=== PATIENT | female | born 1970 | race Caucasian/White ===

== ENCOUNTER → 2016-08-15 | Outpatient (CLI) | payer OTHER ==
--- NOTE | 2016-08-15 11:39 | DIAGNOSTIC IMAGING REPORT ---
LEFT FOREARM 2 VIEWS ROUTINE CLINICAL HISTORY: Pain status post trauma COMPARISON: None. DISCUSSION: No fractures or dislocations are visualized. There is mild spurring at the level of the coronoid processes the proximal ulna. There is calcification at the level of the medial epicondyles of distal humerus. IMPRESSION: Chronic changes at the level of the elbow. No acute fractures. Electronically signed by: Dionisio Isaac M.D. 08/15/2016 11:37 AM Dictated Date/Time: 08/15/2016 11:36 AM
== END | disposition home or self-care (01) ==
LOC: C.RAD1850 11:16
PROVIDERS: ATTEND Nurse Practitioner Adult Health
DX: M79.632 Pain in left forearm (principal); W19.XXXA Unspecified fall, initial encounter

== ENCOUNTER 2019-06-08 19:48 | Observation (INO) ==
--- NOTE | 2019-06-08 21:30 | XRay Report ---
XR chest 1V portable CLINICAL HISTORY: Chest Pain COMPARISON STUDY: No previous studies for comparison. FINDINGS: The heart is normal in size. There is no failure. There is no lobar consolidation. There is subtle right basilar interstitial thickening, nonspecific finding which could indicate a bronchitis. [No pleural effusions are visualized IMPRESSION: 1. No evidence of lobar consolidation 2. Mild right basilar interstitial thickening, a finding which could be secondary to a bronchitis Electronically signed by: Dionisio Isaac M.D. 06/08/2019 9:29 PM
[2019-06-08 21:36] LABS: Basophils # (auto) 0.01 K/uL (0-0.2); Basophils % (auto) 0.1 %; Eosinophils # (auto) 0.04 K/uL (0-0.5); Eosinophils % (auto) 0.3 %; Hematocrit (blood only) 43.8 % (37-47); Immature Granulocytes # (auto) 0.03 K/uL (0.00-0.02); Immature Granulocytes % (auto) 0.2 %; Lymphocytes % (auto) 26.8 %; Mean Corpuscular Hemoglobin 28.7 pg (25-34); Mean Corpuscular Hgb Conc 34.2 g/dL (32-36); Mean Corpuscular Volume 83.7 fL (80-100); Mean Platelet Volume 10.5 fL (7.4-10.4); Monocytes # (auto) 0.78 K/uL (0.11-0.59); Monocytes % (auto) 6.1 %; Neutrophils # (auto) 8.45 K/uL (1.4-6.5); Neutrophils % (auto) 66.5 %; Platelet Count 260 K/uL (130-400); RDW Coefficient of Variation 14.2 % (11.5-14.5); RDW Standard Deviation 43.4 fL (36.4-46.3); Red Blood Count 5.23 M/uL (4.2-5.4); White Blood Count 12.71 K/uL (4.8-10.8)
[2019-06-08 21:51] LABS: Alanine Aminotransferase 53 U/L (12-78); Albumin Level 4.1 gm/dl (3.4-5.0); Aspartate Aminotransferase 21 U/L (15-37); BUN Creatinine Ratio 23.8 (10-20); Blood Urea Nitrogen 20 mg/dl (7-18); Carbon Dioxide 24 mmol/L (21-32); Chloride 104 mmol/L (98-107); Creatinine Clr Calc Pharmacy 89.5 ml/min; Est GFR (African American) 93.3; Est GFR (Non-African American) 80.5; Glucose 213 mg/dl (70-99); Lipase 141 U/L (73-393); Potassium 3.4 mmol/L (3.5-5.1); Sodium 137 mmol/L (136-145)
[2019-06-08 21:56] LABS: Alkaline Phosphatase 103 U/L (45-117); Bilirubin,Total 0.6 mg/dl (0.2-1); Globulin 4.1 gm/dl (2.5-4.0); Total Protein 8.2 gm/dl (6.4-8.2); Troponin I < 0.015 ng/ml (0-0.045)
[2019-06-08] MEDS ORDERED: POTASSIUM CHLORIDE 10 MEQ TABCR PO STA (22:27)
[2019-06-08] MEDS ORDERED: ASPIRIN CHEW 324 MG PO STA (22:33)
[2019-06-08 23:31] LABS: Magnesium 2.2 mg/dl (1.8-2.4)
--- NOTE | 2019-06-08 23:45 | History & Physical Report ---
Date of Service June 08, 2019 Assessment & Plan (1) Chest pain: With left upper extremity radiation ? Possibly from uncontrolled HTN secondary to recent steroid Rx for bronchitis symptoms Rule out musculoskeletal pathology for left upper extremity pain DM2, on oral meds BSG elevated likely secondary to recent steroid course Well-controlled as of recent outpatient hemoglobin A1c of 6.12 May 2018 Hypokalemia secondary to home diuretic Rx OBS PCU Facilitate home BP meds, may need dose titration Trend troponin, TTE RE chest pain Left shoulder x-ray Re: Pain Basal insulin, ISS BG goal [id number], update hemoglobin A1c Replace potassium, hold home diuretic for now DVT Prophylaxis. Lovenox subcu Full code History of Present Illness Chief Complaint: Chest pain, left arm pain Primary Care Provider: Ana Rosa Berg DO History obtained from patient and records. Medical history significant for hypertension, DM 2 on oral meds. Last week, patient seen at PCP's office with bronchitis symptoms. Improved on doxycycline, albuterol inhaler; on last few days of prednisone course. Patient was at work today when she felt fuzzy, transient headache symptoms. Transient left-sided squeezing chest pain with radiation to the left arm. Left upper arm pain slightly worsened by motion. No shortness of breath. Patient directed by PCP to the ER. Medical History as above Surgical History : Cystoscopy, bladder defect repair, gynecologic procedures, ex lap Family History : Unknown as patient was adopted Personal/Social history : Non-smoker, occasional EtOH intake, [employer] Allergies Allergy/AdvReac Type Severity Reaction Status Date / Time Penicillins Allergy Intermediate Hives Verified 06/08/19 22:57 Sulfa (Sulfonamide Allergy Intermediate Hives Verified 06/08/19 22:57 Antibiotics) Home Medications Home Medications Medication Instructions Recorded Confirmed Type albuterol sulfate [ProAir HFA] 2 puff INHALATION Q4H PRN 06/08/19 06/08/19 History atorvastatin 10 mg PO HS 06/08/19 06/08/19 History carvedilol 25 mg PO BID 06/08/19 06/08/19 History cyanocobalamin (vitamin B-12) 1,000 mcg PO DAILY 06/08/19 06/08/19 History [Vitamin B-12] empagliflozin [Jardiance] 25 mg PO QAM 06/08/19 06/08/19 History losartan-hydrochlorothiazide 1 tab PO BID 06/08/19 06/08/19 History metformin 500 mg PO BID 06/08/19 06/08/19 History prednisone 10 mg PO DAILY 06/08/19 06/08/19 History Past Med/Surg History Medical History (Updated 06/09/19 @ 04:21 by Sea Beckham MD) Left ventricular cardiac abnormality Social History Preferred Language: Portuguese Communication Ability: Effective Beliefs That Will Affect Care: None Current Living Situation: Spouse Other Information That Helps Us Care for You: No Feels Safe at Home: Yes Smoking Status: Never smoker Do You Dip or Chew Tobacco: No ; Hx Alcohol Use: No Hx Substance Use: No Review of Systems Review of Systems: As per HPI, all 10 systems reviewed, all other ROS negative Physical Exam Physical Exam: GENERAL: Comfortable, obese, pleasant, no respiratory distress SKIN: Normal color, warm HEENT: [place] palpebral conjunctivae, no ptosis, dry buccal mucosa NECK : Supple, short neck, no tenderness CHEST : CTA, no tenderness HEART : RRR, no obvious murmurs ABDOMEN: Some distention, nontender EXTREMITIES : No LE swelling/tenderness, no other conspicuous deformities noted NEUROLOGIC : Coherent, no facial asymmetry, no other gross focality Results & Data Vital Signs (Past 12 Hours) Vital Signs Temp Pulse Pulse Resp BP BP Pulse Ox 06/08/19 23:00 69 20 164/116 H 95 06/08/19 22:39 73 16 157/93 H 96 06/08/19 21:18 68 18 145/89 H 95 06/08/19 21:14 76 94 06/08/19 19:50 36.4 C L 72 18 160/94 H 94 Laboratory Results Laboratory Results WBC 12.71 K/uL (4.8-10.8) H 06/08/19 21:20 RBC 5.23 M/uL (4.2-5.4) 06/08/19 21:20 Hgb 15.0 g/dL (12.0-16.0) 06/08/19 21:20 Hct 43.8 % (37-47) 06/08/19 21:20 MCV 83.7 fL (80-100) 06/08/19 21:20 MCH 28.7 pg (25-34) 06/08/19 21:20 MCHC 34.2 g/dL (32-36) 06/08/19 21:20 RDW Std Deviation 43.4 fL (36.4-46.3) 06/08/19 21:20 RDW Coeff of Kathrine 14.2 % (11.5-14.5) 06/08/19 21:20 Plt Count 260 K/uL (130-400) 06/08/19 21:20 MPV 10.5 fL (7.4-10.4) H 06/08/19 21:20 Immature Gran % (Auto) 0.2 % 06/08/19 21:20 Neut % (Auto) 66.5 % 06/08/19 21:20 Lymph % (Auto) 26.8 % 06/08/19 21:20 Wells % (Auto) 6.1 % 06/08/19 21:20 Eos % (Auto) 0.3 % 06/08/19 21:20 Baso % (Auto) 0.1 % 06/08/19 21:20 Immature Gran # (Auto) 0.03 K/uL (0.00-0.02) H 06/08/19 21:20 Neut # (Auto) 8.45 K/uL (1.4-6.5) H 06/08/19 21:20 Lymph # (Auto) 3.40 K/uL (1.2-3.4) 06/08/19 21:20 Wells # (Auto) 0.78 K/uL (0.11-0.59) H 06/08/19 21:20 Eos # (Auto) 0.04 K/uL (0-0.5) 06/08/19 21:20 Baso # (Auto) 0.01 K/uL (0-0.2) 06/08/19 21:20 Sodium 137 mmol/L (136-145) 06/08/19 21:20 Potassium 3.4 mmol/L (3.5-5.1) L 06/08/19 21:20 Chloride 104 mmol/L (98-107) 06/08/19 21:20 Carbon Dioxide 24 mmol/L (21-32) 06/08/19 21:20 Anion Gap 8.0 (3-11) 06/08/19 21:20 BUN 20 mg/dl (7-18) H 06/08/19 21:20 Creatinine 0.84 mg/dl (0.6-1.2) 06/08/19 21:20 Est Cr Clr Drug Dosing 89.5 ml/min 06/08/19 21:20 Est GFR ( Amer) 93.3 06/08/19 21:20 Est GFR (Non-Af Amer) 80.5 06/08/19 21:20 BUN/Creatinine Ratio 23.8 (10-20) H 06/08/19 21:20 Glucose 213 mg/dl (70-99) H 06/08/19 21:20 Calcium 10.0 mg/dl (8.5-10.1) 06/08/19 21:20 Magnesium 2.2 mg/dl (1.8-2.4) 06/08/19 21:20 Total Bilirubin 0.6 mg/dl (0.2-1) 06/08/19 21:20 AST 21 U/L (15-37) 06/08/19 21:20 ALT 53 U/L (12-78) 06/08/19 21:20 Alkaline Phosphatase 103 U/L (45-117) 06/08/19 21:20 Troponin I < 0.015 ng/ml (0-0.045) 06/08/19 21:20 Total Protein 8.2 gm/dl (6.4-8.2) 06/08/19 21:20 Albumin 4.1 gm/dl (3.4-5.0) 06/08/19 21:20 Globulin 4.1 gm/dl (2.5-4.0) H 06/08/19 21:20 Albumin/Globulin Ratio 1.0 (0.9-2) 06/08/19 21:20 Lipase 141 U/L (73-393) 06/08/19 21:20 TSH 1.600 uIu/ml (0.300-4.500) 06/08/19 21:20 Diagnostic Findings Chest x-ray : 1. No evidence of lobar consolidation 2. Mild right basilar interstitial thickening, a finding which could be secondary to a bronchitis EKG as per my interpretation rate 65, normal axis, 1 AVB, T wave flattening inferior leads CT head initial read: No acute intracranial process. Atrophy.
[2019-06-08 23:51] LABS: Partial Thromboplastin Ratio 1.1; Partial Thromboplastin Time 28.6 Seconds (21.0-31.0)
[2019-06-08] MEDS ORDERED: TRAMADOL HCL 50 MG TABLET PO STA (23:53)
[2019-06-09] MEDS: LOSARTAN POTASSIUM 50 MG TAB PO SCH ×3 (00:07→20:33)
[2019-06-09] MEDS: carvediloL 25 MG TAB PO SCH ×3 (00:07→20:33)
[2019-06-09] MEDS ORDERED: ACETAMINOPHEN 325 MG TAB PO PRN (01:38)
[2019-06-09] MEDS ORDERED: CARBOHYDRATES FOR HYPOGLYCEMIA PO PRN (01:38)
[2019-06-09] MEDS ORDERED: NITROGLYCERIN SL 0.4 MG/TAB TAB SL PRN (01:38)
[2019-06-09] MEDS ORDERED: GLUCAGON FOR INJ 1 MG VIAL SQ PRN (01:38)
[2019-06-09] MEDS ORDERED: TRAMADOL HCL 50 MG TABLET PO PRN (01:38)
[2019-06-09] MEDS ORDERED: LORazepam 0.25 MG/0.5 ML VIAL IV PRN (01:38)
[2019-06-09] MEDS ORDERED: DEXTROSE 50% 50 ML SYRINGE IV PRN (01:38)
[2019-06-09] MEDS ORDERED: MoRPHine SULFATE 4 MG/ML 1 ML CARP\\VIAL IV PRN (01:38)
[2019-06-09] MEDS ORDERED: INSULIN GLARGINE SOLOSTAR 100 UNITS/ML 3 ML PEN SC STA (01:38)
[2019-06-09] MEDS ORDERED: PROMETHAZINE HCL 12.5 MG in SODIUM CHLORIDE 0.9% 50 ML IV PRN (01:38)
[2019-06-09] MEDS ORDERED: GLUCOSE 10 TABS/TUBE PO PRN (01:38)
[2019-06-09] MEDS ORDERED: GLUCOSE 40% GEL 15 GM TUBE PO PRN (01:38)
[2019-06-09] MEDS ORDERED: NSS + 20MEQ KCL 20 MEQ/1,000 ML BAG IV ONE (02:00)
[2019-06-09] MEDS: ATORVASTATIN 10 MG TAB PO SCH ×2 (02:11→20:33)
[2019-06-09] MEDS: INSULIN ASPART 100 UNITS/ML 3 ML PEN SC SCH ×5 (02:12→20:30)
--- NOTE | 2019-06-09 05:59 | Emergency Department Note ---
Entered by Malia Lux acting as a scribe for History of Present Illness General Chief complaint: Dizziness Stated complaint: LEFT ARM PAIN DIZZY Time Seen by Provider: 06/08/19 20:56 History of Present Illness Provider complaint: dizziness Onset (ago): hour(s) (11) Pain Consistency: + other (episode) Maximum Pain Intensity: 5 Quality: + other (dizziness) Associated symptoms: + denies other symptoms (fall, trauma, shortness of breath, black/bloody stools), + headaches (slight) and + other (skin and lips look white, hot, tingly, lightheaded, near-syncopal, left shoulder pain, tingling in left hand, mild neck pain, diagnosed with bronchitis and slight pneumonia a few weeks ago) Treatments prior to arrival: none The patient is a 49 year old female who presents to the ED with complaints of an episode of dizziness that started 11 hours ago. The patient states that she was at work today when a co-worker told her that her skin and lips look white. The patient states that shortly after this, she was walking down a hallway and became hot, tingly, lightheaded and near-syncopal. The patient states that she sat down for 5-10 minutes and felt better. The patient notes that she stood up and became dizzy again so she sat back down. The patient states that she also had pain in her left shoulder, tingling in her left hand, mild neck pain and a slight headache. The patient states that she called her doctor at this time and made an appointment for this afternoon. The patient states that she was referred here from that appointment because her EKG and past heart history was concerning to the PA-C that saw her. The patient denies fall, trauma, shortness of breath, and black/bloody stools. Per , the patient was diagnosed with bronchitis and slight pneumonia a few weeks ago. The patient denies taking any treatments prior to arrival. Home Medications Home Medications Medication Instructions Recorded Confirmed Type albuterol sulfate [ProAir HFA] 2 puff INHALATION Q4H PRN 06/08/19 06/08/19 History atorvastatin 10 mg PO HS 06/08/19 06/08/19 History carvedilol 25 mg PO BID 06/08/19 06/08/19 History cyanocobalamin (vitamin B-12) 1,000 mcg PO DAILY 06/08/19 06/08/19 History [Vitamin B-12] empagliflozin [Jardiance] 25 mg PO QAM 06/08/19 06/08/19 History losartan-hydrochlorothiazide 1 tab PO BID 06/08/19 06/08/19 History metformin 500 mg PO BID 06/08/19 06/08/19 History prednisone 10 mg PO DAILY 06/08/19 06/08/19 History Allergies Allergy/AdvReac Type Severity Reaction Status Date / Time Penicillins Allergy Intermediate Hives Verified 06/08/19 22:57 Sulfa (Sulfonamide Allergy Intermediate Hives Verified 06/08/19 22:57 Antibiotics) Past Med/Surg History Medical History (Updated 06/09/19 @ 14:58 by Lidia Simms MD) Left ventricular cardiac abnormality Social History Preferred Language: Albanian Communication Ability: Effective Beliefs That Will Affect Care: None Current Living Situation: Spouse Other Information That Helps Us Care for You: No Feels Safe at Home: Yes Smoking Status: Never smoker Do You Dip or Chew Tobacco: No ; Hx Alcohol Use: No Hx Substance Use: No Review of Systems See HPI for pertinent positives & negatives. and A total of 10 systems reviewed and were otherwise negative Physical Exam Vital Signs Vital Signs - 24 hr 06/08/19 19:50 06/08/19 21:14 06/08/19 21:18 Temperature 36.4 C L Temperature Source Oral Pulse Rate 72 76 Pulse Rate [Apical] 68 Respiratory Rate 18 18 Respiratory Effort / Characteristics Non-Labored Spontaneous Respiratory Depth Normal Blood Pressure 160/94 H Blood Pressure [Right Arm] 145/89 H Blood Pressure Mean 116 Blood Pressure Mean [Right Arm] 107 Pulse Oximetry 94 94 95 Oxygen Delivery Method Room Air Room Air Room Air Sepsis Recent Fever Within 48 Hours No Sepsis Action Taken by Nursing No Action Required 06/08/19 22:39 06/08/19 23:00 Temperature Temperature Source Pulse Rate Pulse Rate [Apical] 73 69 Respiratory Rate 16 20 Respiratory Effort / Characteristics Non-Labored Respiratory Depth Normal Blood Pressure Blood Pressure [Right Arm] 157/93 H 164/116 H Blood Pressure Mean Blood Pressure Mean [Right Arm] 114 132 Pulse Oximetry 96 95 Oxygen Delivery Method Room Air Sepsis Recent Fever Within 48 Hours Sepsis Action Taken by Nursing General: Non-ill appearing middle-aged female in no acute distress. HEENT: Normal cephalic atraumatic. Pupils are equal round and reactive to light. Extraocular movements are intact. Oropharynx is pink with moist mucous membranes. No swelling of the mouth lips or tongue. Neck: Supple with a midline trachea. No meningeal signs or stiffness, no JVD or bruits. No Stridor. Chest: Clear to auscultation bilaterally. No wheezes or rhonchi. No increased work of breathing. Heart: regular rate and rhythm. Abdomen: Soft nontender, nondistended without rebound guarding or rigidity. Extremities: No cyanosis clubbing or edema. No calf tenderness or asymmetry Spine/Back. Non tender to palpation. No CVA tenderness Skin: Good turgor without rashes. Neurologic exam: Cranial nerves two through 12 are intact. Motor and sensation are intact and symmetrical throughout. Course Course 2057: Past medical records reviewed. The patient was evaluated in room B8. A complete history and physical exam was performed. 2231: I discussed the patient's case with Dr. Tasha Bunn. He will evaluate the patient for further management. Consultations Consultation #1: I discussed the patient's case with Dr. Tasha Bunn. He will evaluate the patient for further management. Time: 22:32 Administered Medications Atorvastatin Calcium (Lipitor) 10 mg PO HS [facility] Stop: 07/09/19 01:37 Last Admin: 06/09/19 20:33 Dose: 10 mg Documented by: [id number] Admin: 06/09/19 02:11 Dose: 10 mg Documented by: [id number] Benzonatate (Tessalon Perle) 100 mg PO TID [facility] Stop: 07/10/19 09:04 Last Admin: 06/10/19 09:57 Dose: 100 mg Documented by: [id number] Carvedilol (Coreg) 25 mg PO BID [facility] Stop: 07/08/19 23:44 Last Admin: 06/10/19 08:24 Dose: 25 mg Documented by: [id number] Admin: 06/09/19 20:33 Dose: 25 mg Documented by: [id number] Admin: 06/09/19 08:06 Dose: 25 mg Documented by: [id number] Admin: 06/09/19 00:07 Dose: 25 mg Documented by: [id number] Enoxaparin Sodium (Lovenox) 40 mg SQ QAM [facility] Stop: 07/09/19 08:59 Last Admin: 06/10/19 08:26 Dose: Not Given Documented by: [id number] Admin: 06/09/19 08:07 Dose: 40 mg Documented by: [id number] Hydrochlorothiazide (Hctz) 12.5 mg PO QAM [facility] Stop: 07/10/19 09:14 Last Admin: 06/10/19 09:57 Dose: 12.5 mg Documented by: [id number] Insulin Aspart (Novolog Flexpen) 0 units SC ACHS [facility] Stop: 07/09/19 01:37 Last Admin: 06/10/19 10:01 Dose: Not Given Documented by: [id number] Cosigned by: [id number] Admin: 06/09/19 20:30 Dose: Not Given Documented by: [id number] Cosigned by: [id number] Admin: 06/09/19 17:17 Dose: 3 units Documented by: [id number] Cosigned by: [id number] Admin: 06/09/19 12:27 Dose: 3 units Documented by: [id number] Cosigned by: [id number] Admin: 06/09/19 08:05 Dose: 2 units Documented by: [id number] Cosigned by: [id number] Admin: 06/09/19 02:12 Dose: Not Given Documented by: [id number] Cosigned by: [id number] Insulin Glargine (Lantus Solostar Pen) 5 units SQ HS [facility] Stop: 07/09/19 20:59 Last Admin: 06/09/19 20:32 Dose: 5 units Documented by: [id number] Cosigned by: [id number] Losartan Potassium (Cozaar) 50 mg PO BID [facility] Stop: 07/08/19 23:47 Last Admin: 06/10/19 08:24 Dose: 50 mg Documented by: [id number] Admin: 06/09/19 20:33 Dose: 50 mg Documented by: [id number] Admin: 06/09/19 08:06 Dose: 50 mg Documented by: [id number] Admin: 06/09/19 00:07 Dose: Not Given Documented by: [id number] Prednisone (Prednisone) 10 mg PO DAILY [facility] Stop: 06/11/19 08:59 Last Admin: 06/10/19 08:24 Dose: 10 mg Documented by: [id number] Admin: 06/09/19 08:06 Dose: 10 mg Documented by: [id number] Discontinued Medications Aspirin (Aspirin) 324 mg PO NOW STA Stop: 06/08/19 22:34 Last Admin: 06/08/19 22:38 Dose: 324 mg Documented by: [id number] Baclofen (Lioresal) 10 mg PO ONE ONE Stop: 06/09/19 12:16 Last Admin: 06/09/19 13:27 Dose: 10 mg Documented by: [id number] Baclofen (Lioresal) 10 mg PO ONE ONE Stop: 06/10/19 09:04 Last Admin: 06/10/19 09:56 Dose: 10 mg Documented by: [id number] Potassium Chloride/Sodium Chloride (Normal Saline W/20 Meq Kcl) 20 meq in 1,000 mls @ 50 mls/hr IV .Q20H ONE Stop: 06/09/19 21:59 Last Infusion: 06/09/19 22:12 Dose: 0 mls/hr Documented by: [id number] Admin: 06/09/19 02:12 Dose: 50 mls/hr Documented by: [id number] Insulin Glargine (Lantus Solostar Pen) 5 units SC NOW STA Stop: 06/09/19 01:39 Last Admin: 06/09/19 02:14 Dose: 5 units Documented by: [id number] Cosigned by: [id number] Potassium Chloride (Klor-Con M10) 40 meq PO NOW STA Stop: 06/08/19 22:28 Last Admin: 06/08/19 22:38 Dose: 40 meq Documented by: [id number] Potassium Chloride (Klor-Con M20) 40 meq PO NOW STA Stop: 06/09/19 09:29 Last Admin: 06/09/19 10:38 Dose: 40 meq Documented by: [id number] Tramadol HCl (Ultram) 25 mg PO NOW STA Stop: 06/08/19 23:54 Last Admin: 06/09/19 00:13 Dose: 25 mg Documented by: [id number] Medical Decision Making Differential Diagnosis Differentials include acute coronary syndrome, arrhythmia, neurological disease, metabolic and electrolyte abnormality. Medical Records Attestation: I reviewed the patient's medical records. Home Medications Current Medication List: was personally reviewed by me Laboratory Data Attestation: I reviewed the patient's lab results. Result diagrams: 06/09/19 07:10 06/10/19 06:52 Lab Results 06/08/19 06/08/19 06/08/19 Range/Units 21:20 21:20 21:20 WBC 12.71 H (4.8-10.8) K/uL RBC 5.23 (4.2-5.4) M/uL Hgb 15.0 (12.0-16.0) g/dL Hct 43.8 (37-47) % MCV 83.7 (80-100) fL MCH 28.7 (25-34) pg MCHC 34.2 (32-36) g/dL RDW Std Deviation 43.4 (36.4-46.3) fL RDW Coeff of Kathrine 14.2 (11.5-14.5) % Plt Count 260 (130-400) K/uL MPV 10.5 H (7.4-10.4) fL Immature Gran % (Auto) 0.2 % Neut % (Auto) 66.5 % Lymph % (Auto) 26.8 % [facility] % (Auto) 6.1 % Eos % (Auto) 0.3 % Baso % (Auto) 0.1 % Immature Gran # (Auto) 0.03 H (0.00-0.02) K/uL Neut # (Auto) 8.45 H (1.4-6.5) K/uL Lymph # (Auto) 3.40 (1.2-3.4) K/uL [facility] # (Auto) 0.78 H (0.11-0.59) K/uL Eos # (Auto) 0.04 (0-0.5) K/uL Baso # (Auto) 0.01 (0-0.2) K/uL APTT (21.0-31.0) Seconds PTT Ratio Sodium 137 (136-145) mmol/L Potassium 3.4 L (3.5-5.1) mmol/L Chloride 104 (98-107) mmol/L Carbon Dioxide 24 (21-32) mmol/L Anion Gap 8.0 (3-11) BUN 20 H (7-18) mg/dl Creatinine 0.84 (0.6-1.2) mg/dl Est Cr Clr Drug Dosing 89.5 ml/min Est GFR ( Amer) 93.3 Est GFR (Non-Af Amer) 80.5 BUN/Creatinine Ratio 23.8 H (10-20) Glucose 213 H (70-99) mg/dl Estimat Average Glucose 180 mg/dl Hemoglobin A1c 7.9 H (4.5-5.6) % Calcium 10.0 (8.5-10.1) mg/dl Magnesium 2.2 (1.8-2.4) mg/dl Total Bilirubin 0.6 (0.2-1) mg/dl AST 21 (15-37) U/L ALT 53 (12-78) U/L Alkaline Phosphatase 103 (45-117) U/L Troponin I < 0.015 (0-0.045) ng/ml Total Protein 8.2 (6.4-8.2) gm/dl Albumin 4.1 (3.4-5.0) gm/dl Globulin 4.1 H (2.5-4.0) gm/dl Albumin/Globulin Ratio 1.0 (0.9-2) Lipase 141 (73-393) U/L TSH 1.600 (0.300-4.500) uIu/ml 06/08/19 06/08/19 Range/Units 23:24 23:24 WBC (4.8-10.8) K/uL RBC (4.2-5.4) M/uL Hgb (12.0-16.0) g/dL Hct (37-47) % MCV (80-100) fL MCH (25-34) pg MCHC (32-36) g/dL RDW Std Deviation (36.4-46.3) fL RDW Coeff of Kathrine (11.5-14.5) % Plt Count (130-400) K/uL MPV (7.4-10.4) fL Immature Gran % (Auto) % Neut % (Auto) % Lymph % (Auto) % [facility] % (Auto) % Eos % (Auto) % Baso % (Auto) % Immature Gran # (Auto) (0.00-0.02) K/uL Neut # (Auto) (1.4-6.5) K/uL Lymph # (Auto) (1.2-3.4) K/uL [facility] # (Auto) (0.11-0.59) K/uL Eos # (Auto) (0-0.5) K/uL Baso # (Auto) (0-0.2) K/uL APTT 28.6 (21.0-31.0) Seconds PTT Ratio 1.1 Sodium (136-145) mmol/L Potassium (3.5-5.1) mmol/L Chloride (98-107) mmol/L Carbon Dioxide (21-32) mmol/L Anion Gap (3-11) BUN (7-18) mg/dl Creatinine (0.6-1.2) mg/dl Est Cr Clr Drug Dosing ml/min Est GFR ( Amer) Est GFR (Non-Af Amer) BUN/Creatinine Ratio (10-20) Glucose (70-99) mg/dl Estimat Average Glucose mg/dl Hemoglobin A1c (4.5-5.6) % Calcium (8.5-10.1) mg/dl Magnesium (1.8-2.4) mg/dl Total Bilirubin (0.2-1) mg/dl AST (15-37) U/L ALT (12-78) U/L Alkaline Phosphatase (45-117) U/L Troponin I < 0.015 (0-0.045) ng/ml Total Protein (6.4-8.2) gm/dl Albumin (3.4-5.0) gm/dl Globulin (2.5-4.0) gm/dl Albumin/Globulin Ratio (0.9-2) Lipase (73-393) U/L TSH (0.300-4.500) uIu/ml Imaging Data Radiologist's Impression: Radiology results as stated below per my review and the radiologist's interpretation: XR chest 1V portable CLINICAL HISTORY: Chest Pain COMPARISON STUDY: No previous studies for comparison. FINDINGS: The heart is normal in size. There is no failure. There is no lobar consolidation. There is subtle right basilar interstitial thickening, nonspecific finding which could indicate a bronchitis.[No pleural effusions are visualized IMPRESSION: 1. No evidence of lobar consolidation 2. Mild right basilar interstitial thickening, a finding which could be secondary to a bronchitis Electronically signed by: Dionisio Isaac M.D. 06/08/2019 9:29 PM ECG Data Attestation: I personally reviewed and interpreted this ECG as follows: Indication: + weakness Rate (beats per minute): 71 Rhythm: + normal sinus ECG ST segments: no ST depression and no ST elevation ECG Findings: + Other (normal interval); no PACs and no PVCs Comparison ECG Date: no prior available Blood Pressure Blood Pressure Findings: Elevated blood pressure Blood Pressure Disposition: further management by hospitalist SILVINA Narrative This patient comes in as described above. She was sent over from her doctor's office after presenting there with dizziness episodes as well as pain and tingling in her left arm. she also has a few twinges of chest pain. She looks well and is asymptomatic at present. She has a normal neurologic exam. IV access was established and multiple blood testing was obtained. EKG does not suggest acute coronary syndrome or arrhythmia. Her initial troponin is negative. Chest x-ray was unremarkable and does not suggest congestive heart failure, pneumonia, or pneumothorax. She has no acute electrolyte or metabolic abnormality. Her symptoms do not seem consistent with pulmonary embolism or aneurysm. She was given aspirin in the ER. She does have multiple cardiac risk factors, she is a diabetic, has high blood pressure and cholesterol. She is unsure of her family history as she is adopted. Given her symptoms, I do think this could be a cardiac etiology potentially and I do think it is prudent to admit/observe her for a cardiac rule out work-up. I have consulted Dr. Summers to see her in the ER for these measures. Impression & Plan Dizziness, Tingling of left upper extremity, High blood pressure, High cholesterol Discharge Plan Visit Data *Final* Discharge Date/Time: 06/09/19 00:54 Chief Complaint: Dizziness Stated Complaint: LEFT ARM PAIN DIZZY ED Provider: Adarsh Sims Discharge Problem: Dizziness, Tingling of left upper extremity, High blood pressure, High cholesterol Patient Disposition: Admitted As Inpatient Discharge Instructions Interventions: ED Discharge Assessment Last Done: 06/09/19 00:54 Discharge Problem: High blood pressure Qualifiers: Hypertension type: unspecified Qualified Code(s): I10 - Essential (primary) hypertension The scribe's documentation has been prepared under my direction and personally reviewed by me in its entirety. I confirm that the note above accurately reflects all work, treatment, procedures, and medical decision making performed by me.
--- NOTE | 2019-06-09 06:09 | CT Scan Report ---
CT head/brain wo con CT DOSE: 537.48 mGy.cm HISTORY: Headache martinez TECHNIQUE: Multiaxial CT images of the head were performed without the use of intravenous contrast. A dose lowering technique was utilized adhering to the principles of ALARA. Comparison: None. Findings: The paranasal sinuses and mastoid air cells are clear. The calvarium and skull base are int act. The ventricles and sulci are within normal limits. There is no mass, hematoma, midline shift, or acute infarct. Age-related atrophy and chronic small vessel change Impression: No acute intracranial abnormality. Age-related atrophy and chronic small vessel change The above report was generated using voice recognition software. It may contain grammatical, syntax or spelling errors. Electronically signed by: Jenaro Sepulveda M.D. 06/09/2019 6:07 AM
--- NOTE | 2019-06-09 06:11 | XRay Report ---
XR shoulder LT min 2V routine CLINICAL HISTORY: L shoulder pain pain COMPARISON: None. DISCUSSION: The bones and joint spaces appear intact. There is no evidence of fracture, dislocation o r bony disease. There is no evidence for soft tissue swelling. IMPRESSION: Negative study. The above report was generated using voice recognition software. It may contain grammatical, syntax or spelling errors. Electronically signed by: Jenaro Sepulveda M.D. 06/09/2019 6:09 AM
[2019-06-09 06:19] LABS: Estimated Average Glucose 180 mg/dl; Hemoglobin A1C 7.9 % (4.5-5.6)
[2019-06-09 07:26] LABS: Basophils # (auto) 0.02 K/uL (0-0.2); Basophils % (auto) 0.2 %; Eosinophils # (auto) 0.17 K/uL (0-0.5); Eosinophils % (auto) 1.3 %; Hematocrit (blood only) 44.5 % (37-47); Hemoglobin 15.1 g/dL (12.0-16.0); Immature Granulocytes # (auto) 0.03 K/uL (0.00-0.02); Immature Granulocytes % (auto) 0.2 %; Lymphocytes # (auto) 4.91 K/uL (1.2-3.4); Lymphocytes % (auto) 37.2 %; Mean Corpuscular Hemoglobin 28.7 pg (25-34); Mean Corpuscular Hgb Conc 33.9 g/dL (32-36); Mean Corpuscular Volume 84.6 fL (80-100); Mean Platelet Volume 9.9 fL (7.4-10.4); Monocytes # (auto) 1.11 K/uL (0.11-0.59); Monocytes % (auto) 8.4 %; Neutrophils # (auto) 6.95 K/uL (1.4-6.5); Neutrophils % (auto) 52.7 %; Platelet Count 242 K/uL (130-400); RDW Coefficient of Variation 14.4 % (11.5-14.5); RDW Standard Deviation 43.9 fL (36.4-46.3); Red Blood Count 5.26 M/uL (4.2-5.4); White Blood Count 13.19 K/uL (4.8-10.8)
[2019-06-09 08:04] LABS: BUN Creatinine Ratio 27.3 (10-20); Calcium 9.5 mg/dl (8.5-10.1); Creatinine Clr Calc Pharmacy 108.3 ml/min; Est GFR (African American) 116.8; Est GFR (Non-African American) 100.8; Potassium 3.2 mmol/L (3.5-5.1)
[2019-06-09] MEDS: predniSONE 10 MG TABLET PO SCH (08:06)
[2019-06-09] MEDS: ENOXAPARIN INJ 40 MG/0.4 ML SYR SQ SCH (08:07)
[2019-06-09] MEDS ORDERED: POTASSIUM CHLORIDE 20 MEQ TABCR PO STA (09:28)
[2019-06-09] MEDS ORDERED: BACLOFEN 10 MG TAB PO ONE (12:15)
--- NOTE | 2019-06-09 14:50 | Hospitalist Progress Note ---
Date of Service June 09, 2019 Assessment & Plan (1) Neck pain on left side: Left side shoulder pain Atypical chest pain Present on admission with left side neck and shoulder pain associated with dizziness and headache Was admitted to tele to r/o ACS Seems to be related to muscles stiffness since when palpated the left neck muscle area, her pain reproducible Troponinx 3 negative EKG showed no ischemic changes ECHO showed trace loculated pericardial effusion adjacent to the lateral right ventricle free wall. No wall motion abnormality with Ejection fraction 55% Will get ESR and CRP to r/o pericarditis since recently has a viral URI Will monitor in tele Continue statin and carvedilol Starting on Baclofen DM type 2 Recent Hba1c 7.9 (06/09/19) She was recently starting on Jardiance Consider to increase Metformin to 1g BID as outpatient if ok to tolerate HTN BP stable Continue carvedilol and Losartan Continue monitor BP Hypokalemia K replaced Monitor BMP DVT px on Lovenox CODE STATUS FULL CODE Subjective Pt was seen and examined. Lying in bed with no distress Pt said that she does feel tenderness around the left muscle area of her neck She said that she does not have any chest pain She does not have any tenderness across her back area She complaints of tenderness when palpate the muscle around her left side of her neck Denies any SOB, palpitation, dizziness, chest pain and fever Physical Exam Physical Exam: General- No acute distress Head- atraumatic Eyes- PERRL, EOMI, ENT- oropharynx clear Neck- left side muscle tenderness Lungs- clear to auscultation Heart- regular rhythm Abdomen- normal bowel sounds, soft, nontender Extremities- no calf tenderness Neuro- alert, oriented x 3; PERRL, EOMI; no facial palsy; no dysarthria Skin- warm & dry Results & Data Vital Signs (Past 12 Hours) Vital Signs Temp Pulse Pulse Resp BP Pulse Ox 06/09/19 11:50 36.9 C 66 18 135/65 99 06/09/19 10:16 69 06/09/19 07:53 36.8 C 64 18 141/66 H 97 06/09/19 03:32 36.5 C 64 20 134/83 97
[2019-06-09] MEDS ORDERED: INSULIN GLARGINE SOLOSTAR 100 UNITS/ML 3 ML PEN SQ SCH (21:00)
[2019-06-10 07:52] LABS: Calcium 8.7 mg/dl (8.5-10.1); Creatinine Clr Calc Pharmacy 124.5 ml/min; Est GFR (African American) 122.3; Est GFR (Non-African American) 105.5; Potassium 3.6 mmol/L (3.5-5.1)
[2019-06-10] MEDS: predniSONE 10 MG TABLET PO SCH (08:24)
[2019-06-10] MEDS: LOSARTAN POTASSIUM 50 MG TAB PO SCH (08:24)
[2019-06-10] MEDS: carvediloL 25 MG TAB PO SCH (08:24)
[2019-06-10] MEDS: ENOXAPARIN INJ 40 MG/0.4 ML SYR SQ SCH (08:26)
[2019-06-10] MEDS ORDERED: BACLOFEN 10 MG TAB PO ONE (09:03)
--- NOTE | 2019-06-10 09:04 | Cardiology Consultation ---
Date of Consultation June 10, 2019 Assessment & Plan (1) Bronchitis: Patient with 2 weeks of coughing, wheezing, yellow sputum production, consistent with bronchitis She was to be on outpatient antibiotics and steroids for 2 more days, per patient Chest xray negative for pneumonia (2) Neck pain on left side: muscuslosekeltal based on reproducible symptoms with palpation and movement. negative cardiac enzymes (3) Dizziness: Resolved may be volume depeltion on arrival from acute illness (4) Hypokalemia: supplement. Improved HCTZ was resumed due to HTN. Supplement potassium 20 meq daily and monitor (5) Hypertension: Uncontrolled. Resume HCTZ which was held on admission Monitor. Consider titration of dose of HCTZ (6) Pericardial effusion: Trace pericardial effusion, likely related to recent acute illness/bronchitis No tamponade. Does not appear to be symptomatic with pericarditis based on her symptoms. Case discussed with Dr. Joe. Recommend ongoing treatment for bronchitis and hypertension. Will monitor Supervising Physician Co-Signing Physician Notes Cardiology attending: Incidental small amount of pericardial fluid noted in the setting of acute bronchitis. I do not think any specific treatment or follow up for this is necessary. Would complete course of therapy for bronchitis. She has mild chest pain, that does not sound characteristic of angina, and is likely related to the bronchitis / cough. Serial troponin measurements were normal. Discussed with Pedro Dempsey PA-C and Dr Simms, martha from my standpoint for discharge. History of Present Illness Reason for Consultation: chest pain; pericardial effusion Requesting Physician: Dr. Simms Attending Physician: Dr. Joe History of Present Illness Patient is a 49-year-old female known to [facility] cardiology following with Dr. Leroy as an outpatient. She carries a history of hypertensive heart disease, dyslipidemia, DM, obesity. Over the last 2 weeks patient has been treated as an outpatient for acute bronchitis. She has been receiving oral steroids, antibiotics and prescribed an albuterol inhaler. She notes ongoing cough and wheezing. She attempted to go to work earlier this week ([employer]) and developed sudden onset hot/flushing sensation and felt near syncopal. She developed mild chest tightness and left shoulder pain. She schedule follow-up evaluation with PCP who directed her to the emergency room for evaluation. In emergency room, EKG demonstrated normal sinus rhythm without acute ischemic changes. Cardiac enzymes unremarkable x3. Chest x-ray consistent with possible bronchitis. She underwent 2D echocardiogram which demonstrated preserved LV systolic function with normal wall motion, and trace pericardial effusion along the RV free wall without tamponade. At time of consult, patient reports ongoing cough with yellow sputum production. She denies chest pain, although feels her chest is tight from coughing. She also reports ongoing left arm and shoulder discomfort and tingling in her hand. Symptoms are worse with movement of her left arm. She denies acute injury recently. 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 Prior to becoming ill with bronchitis, she denies recent chest pain at rest or with activity. No recent exertional shortness of breath. Her last stress test was in 2017 and was negative for inducible ischemia. Allergies Allergy/AdvReac Type Severity Reaction Status Date / Time Penicillins Allergy Intermediate Hives Verified 06/08/19 22:57 Sulfa (Sulfonamide Allergy Intermediate Hives Verified 06/08/19 22:57 Antibiotics) Home Medications Home Medications Medication Instructions Recorded Confirmed Type Jardiance 25 mg PO QAM 06/08/19 06/08/19 History albuterol sulfate [ProAir HFA] 2 puff INHALATION Q4H PRN 06/08/19 06/08/19 History atorvastatin 10 mg PO HS 06/08/19 06/08/19 History carvedilol 25 mg PO BID 06/08/19 06/08/19 History cyanocobalamin (vitamin B-12) 1,000 mcg PO DAILY 06/08/19 06/08/19 History [Vitamin B-12] losartan-hydrochlorothiazide 1 tab PO BID 06/08/19 06/08/19 History metformin 500 mg PO BID 06/08/19 06/08/19 History prednisone 10 mg PO DAILY 06/08/19 06/08/19 History guaifenesin 200 mg PO TID PRN 5 Days #15 tab 06/10/19 Rx Patient History Medical History (Updated 06/10/19 @ 12:51 by Rajni Dempsey PA-C) Left ventricular cardiac abnormality Social History Preferred Language: Swedish Communication Ability: Effective Beliefs That Will Affect Care: None Current Living Situation: Spouse Other Information That Helps Us Care for You: No Feels Safe at Home: Yes Smoking Status: Never smoker Do You Dip or Chew Tobacco: No ; Hx Alcohol Use: No Hx Substance Use: No Review of Systems Review of Systems: All systems reviewed & are unremarkable except as noted in HPI & below Physical Exam Constitutional: WD/WN, vitals as above Respiratory: + cough Auscultation: + diminished lung sounds and + rhonchi Cardiovascular: RRR, no murmur, no edema Gastrointestinal (Abdomen): normal bowel sounds, soft, nontender, no hepatosplenomegaly Neurologic: PERRL, EOMI, accommodation nl, no face palsy, no dysarthria Psychiatric: A+Ox3, euthymic affect Results & Data Vital Signs (Past 12 Hours) Vital Signs Temp Pulse Pulse Resp BP Pulse Ox 06/10/19 07:44 36.7 C 69 20 153/98 H 93 06/10/19 04:01 36.6 C 71 20 137/87 93 06/10/19 00:00 67 06/09/19 23:14 36.6 C 65 19 150/90 H 93 Laboratory Results 06/10/19 06/10/19 06/09/19 Range/Units 07:30 06:52 20:12 ESR (0-21) mm/hr Sodium 139 (136-145) mmol/L Potassium 3.6 (3.5-5.1) mmol/L Chloride 112 H (98-107) mmol/L Carbon Dioxide 22 (21-32) mmol/L Anion Gap 5.0 (3-11) BUN 19 H (7-18) mg/dl Creatinine 0.60 (0.6-1.2) mg/dl Est Cr Clr Drug Dosing 124.5 ml/min Est GFR ( Amer) 122.3 Est GFR (Non-Af Amer) 105.5 BUN/Creatinine Ratio 32.0 H (10-20) Glucose 118 H (70-99) mg/dl POC Glucose 111 H 141 H (70-99) Calcium 8.7 (8.5-10.1) mg/dl Troponin I (0-0.045) ng/ml C-Reactive Protein (0-0.29) mg/dl 06/09/19 06/09/19 06/09/19 Range/Units 16:18 15:39 15:39 ESR 21 (0-21) mm/hr Sodium (136-145) mmol/L Potassium (3.5-5.1) mmol/L Chloride (98-107) mmol/L Carbon Dioxide (21-32) mmol/L Anion Gap (3-11) BUN (7-18) mg/dl Creatinine (0.6-1.2) mg/dl Est Cr Clr Drug Dosing ml/min Est GFR ( Amer) Est GFR (Non-Af Amer) BUN/Creatinine Ratio (10-20) Glucose (70-99) mg/dl POC Glucose 135 H (70-99) Calcium (8.5-10.1) mg/dl Troponin I (0-0.045) ng/ml C-Reactive Protein 0.72 H (0-0.29) mg/dl 06/09/19 06/09/19 Range/Units 11:39 07:10 ESR (0-21) mm/hr Sodium (136-145) mmol/L Potassium (3.5-5.1) mmol/L Chloride (98-107) mmol/L Carbon Dioxide (21-32) mmol/L Anion Gap (3-11) BUN (7-18) mg/dl Creatinine (0.6-1.2) mg/dl Est Cr Clr Drug Dosing ml/min Est GFR ( Amer) Est GFR (Non-Af Amer) BUN/Creatinine Ratio (10-20) Glucose (70-99) mg/dl POC Glucose 179 H (70-99) Calcium (8.5-10.1) mg/dl Troponin I < 0.015 (0-0.045) ng/ml C-Reactive Protein (0-0.29) mg/dl Diagnostic Findings EKG on admission: Normal sinus rhythm Nonspecific ST abnormality When compared with prior inpatient and outpatient EKG, previously noted anterior T wave inversions have resolved 2D echo report this admission: Borderline concentric LVH. Left ventricular wall motion is normal. LV ejection fraction 55%. Grade 1 diastolic dysfunction. Trace loculated pericardial effusion adjacent to the lateral right ventricular free wall on parasternal four-chamber view. No echocardiographic indications of cardiac tamponade. Medications Administered Current Inpatient Medications Acetaminophen (Tylenol) 650 mg PO Q4H PRN PRN Reason: Pain or Fever Stop: 07/09/19 01:37 Atorvastatin Calcium (Lipitor) 10 mg PO HS [facility] Stop: 07/09/19 01:37 Last Admin: 06/09/19 20:33 Dose: 10 mg Documented by: Carvedilol (Coreg) 25 mg PO BID [facility] Stop: 07/08/19 23:44 Last Admin: 06/10/19 08:24 Dose: 25 mg Documented by: Dextrose (Dextrose 50%) 25 - 50 ml IV UD PRN; Protocol PRN Reason: Hypoglycemia Protocol Stop: 07/09/19 01:37 Enoxaparin Sodium (Lovenox) 40 mg SQ QAM [facility] Stop: 07/09/19 08:59 Last Admin: 06/10/19 08:26 Dose: Not Given Documented by: Glucagon (Glucagen) 1 mg SQ UD PRN; Protocol PRN Reason: Hypoglycemia Protocol Stop: 07/09/19 01:37 Glucose (Dex4 Glucose) 4 - 8 tabs PO UD PRN; Protocol PRN Reason: Hypoglycemia Protocol Stop: 07/09/19 01:37 Glucose (Glucose 40%) 15 - 30 gm PO UD PRN; Protocol PRN Reason: Hypoglycemia Protocol Stop: 07/09/19 01:37 Lorazepam (Ativan) 0.25 mg in 0.5 mls @ 0.5 mls/min IV Q4H PRN PRN Reason: Anxiety Stop: 07/09/19 01:37 Promethazine HCl 12.5 mg/ (Sodium Chloride) 50.5 mls @ 202 mls/hr IV Q6H PRN PRN Reason: Nausea And Vomiting Stop: 07/09/19 01:37 Insulin Aspart (Novolog Flexpen) 0 units SC ACHS [facility] Stop: 07/09/19 01:37 Last Admin: 06/09/19 20:30 Dose: Not Given Documented by: Insulin Glargine (Lantus Solostar Pen) 5 units SQ HS [facility] Stop: 07/09/19 20:59 Last Admin: 06/09/19 20:32 Dose: 5 units Documented by: Losartan Potassium (Cozaar) 50 mg PO BID [facility] Stop: 07/08/19 23:47 Last Admin: 06/10/19 08:24 Dose: 50 mg Documented by: Miscellaneous (Carbohydrates For Hypoglycemia) 15 - 30 gm PO UD PRN PRN Reason: Hypoglycemia Protocol Stop: 07/09/19 01:37 Morphine Sulfate (Morphine Sulfate) 4 mg IV Q4H PRN PRN Reason: Pain Stop: 06/23/19 01:37 Nitroglycerin (Nitrostat) 0.4 mg SL UD PRN PRN Reason: Chest Pain Stop: 07/09/19 01:37 Prednisone (Prednisone) 10 mg PO DAILY [facility] Stop: 06/11/19 08:59 Last Admin: 06/10/19 08:24 Dose: 10 mg Documented by: Tramadol HCl (Ultram) 25 - 50 mg PO Q4H PRN PRN Reason: Pain Stop: 07/09/19 01:37
--- NOTE | 2019-06-10 09:08 | Hospitalist Progress Note ---
Date of Service June 10, 2019 Assessment & Plan (1) Neck pain on left side: Left side shoulder pain Atypical chest pain Present on admission with left side neck and shoulder pain associated with dizziness and headache Was admitted to tele to r/o ACS Seems to be related to muscles stiffness since when palpated the left neck muscle area, her pain reproducible Troponinx 3 negative EKG showed no ischemic changes ECHO showed trace loculated pericardial effusion adjacent to the lateral right ventricle free wall. No wall motion abnormality with Ejection fraction 55% ESR normal CRP mildly elevated Continue statin and carvedilol Baclofen seems to help the neck pain Will consult cardio for loculated pleural effusion on ECHO Case discussed with cardiology and no additional cardiac work up needed Will discharge home today Trace Loculated pleural effusion on echo Possible related to recent bronchitis Cardiology on board No additional cardiac testing Stable Bronchitis CXR showed no evidence of lobar consolidation Will complete outpatient steroid taper Will discharge on guaifenesin for the cough Clinically stable DM type 2 Recent Hba1c 7.9 (06/09/19) She was recently starting on Jardiance Consider to increase Metformin to 1g BID as outpatient if ok to tolerate HTN BP elevated this morning Continue carvedilol and Losartan Will resume HCTZ 12.5 mg Continue monitor BP Hypokalemia K 3.6 today Monitor BMP Stable DVT px on Lovenox CODE STATUS FULL CODE Disposition Follow up with your primary care provider Dr. Levy on 06/13 @ 9:25 am Subjective Pt was seen and examined Lying in bed with no distress Pt said that the pain in her left side neck area improves She said that she had some chest discomfort this morning She said that she was coughing a lot last night Denies any chest pain, palpitation, dizziness and SOB Physical Exam Physical Exam: General- No acute distress Head- atraumatic Eyes- PERRL, EOMI, ENT- oropharynx clear Neck- left side muscle tenderness Lungs- clear to auscultation Heart- regular rhythm Abdomen- normal bowel sounds, soft, nontender Extremities- no calf tenderness Neuro- alert, oriented x 3; PERRL, EOMI; no facial palsy; no dysarthria Skin- warm & dry Results & Data Vital Signs (Past 12 Hours) Vital Signs Temp Pulse Pulse Resp BP Pulse Ox 06/10/19 07:44 36.7 C 69 20 153/98 H 93 06/10/19 04:01 36.6 C 71 20 137/87 93 06/10/19 00:00 67 06/09/19 23:14 36.6 C 65 19 150/90 H 93
[2019-06-10] MEDS ORDERED: hydroCHLOROthiazide 25 MG TAB PO SCH (09:15)
[2019-06-10] MEDS: BENZONATATE 100 MG CAPSULE PO SCH ×2 (09:57→14:23)
[2019-06-10] MEDS ORDERED: POTASSIUM CHLORIDE 20 MEQ TABCR PO SCH (10:00)
[2019-06-10] MEDS: INSULIN ASPART 100 UNITS/ML 3 ML PEN SC SCH ×2 (10:01→12:19)
--- NOTE | 2019-06-11 08:23 | Discharge Summary ---
Date of Service June 10, 2019 Admission HPI Per Admitting Provider History obtained from patient and records. Medical history significant for hypertension, DM 2 on oral meds. Last week, patient seen at PCP's office with bronchitis symptoms. Improved on doxycycline, albuterol inhaler; on last few days of prednisone course. Patient was at work today when she felt fuzzy, transient headache symptoms. Transient left-sided squeezing chest pain with radiation to the left arm. Left upper arm pain slightly worsened by motion. No shortness of breath. Patient directed by PCP to the ER. Medical History as above Surgical History : Cystoscopy, bladder defect repair, gynecologic procedures, ex lap Family History : Unknown as patient was adopted Personal/Social history : Non-smoker, occasional EtOH intake, [employer] house[employer] Admission Exam Per Admitting Provider GENERAL: Comfortable, obese, pleasant, no respiratory distress SKIN: Normal color, warm HEENT: [place] palpebral conjunctivae, no ptosis, dry buccal mucosa NECK : Supple, short neck, no tenderness CHEST : CTA, no tenderness HEART : RRR, no obvious murmurs ABDOMEN: Some distention, nontender EXTREMITIES : No LE swelling/tenderness, no other conspicuous deformities noted NEUROLOGIC : Coherent, no facial asymmetry, no other gross focality Principal Diagnosis Neck pain on left side: Left side shoulder pain Atypical chest pain Loculated pleural effusion Diabetes Type 2 Hypertension Hypokalemia Discharge Exam General- No acute distress Head- atraumatic Eyes- PERRL, EOMI, ENT- oropharynx clear Neck- left side muscle tenderness Lungs- clear to auscultation Heart- regular rhythm Abdomen- normal bowel sounds, soft, nontender Extremities- no calf tenderness Neuro- alert, oriented x 3; PERRL, EOMI; no facial palsy; no dysarthria Skin- warm & dry Discharge Data Allergies Allergy/AdvReac Type Severity Reaction Status Date / Time Penicillins Allergy Intermediate Hives Verified 06/08/19 22:57 Sulfa (Sulfonamide Allergy Intermediate Hives Verified 06/08/19 22:57 Antibiotics) Consultations 06/08/19 22:32 ED Decision to Admit Stat 06/10/19 07:46 Consult Cardiology Routine Ordered Studies 06/08/19 23:44 CT head/brain wo con Urgent XR chest 1V portable CLINICAL HISTORY: Chest Pain COMPARISON STUDY: No previous studies for comparison. FINDINGS: The heart is normal in size. There is no failure. There is no lobar consolidation. There is subtle right basilar interstitial thickening, nonspecific finding which could indicate a bronchitis.[No pleural effusions are visualized IMPRESSION: 1. No evidence of lobar consolidation 2. Mild right basilar interstitial thickening, a finding which could be secondary to a bronchitis Electronically signed by: Dionisio Isaac M.D. 06/08/2019 9:29 PM Dictated: 06/08/192126 Transcribed: 06/08/192126 CT head/brain wo con CT DOSE: 537.48 mGy.cm HISTORY: Headache martinez TECHNIQUE: Multiaxial CT images of the head were performed without the use of intravenous contrast. A dose lowering technique was utilized adhering to the principles of ALARA. Comparison: None. Findings: The paranasal sinuses and mastoid air cells are clear. The calvarium and skull base are intact. The ventricles and sulci are within normal limits. There is no mass, hematoma, midline shift, or acute infarct. Age-related atrophy and chronic small vessel change Impression: No acute intracranial abnormality. Age-related atrophy and chronic small vessel change The above report was generated using voice recognition software. It may contain grammatical, syntax or spelling errors. Electronically signed by: Jenaro Sepulveda M.D. 06/09/2019 6:07 AM Dictated: 06/09/19605 Transcribed: 06/09/19605 XR shoulder LT min 2V routine CLINICAL HISTORY: L shoulder pain pain COMPARISON: None. DISCUSSION: The bones and joint spaces appear intact. There is no evidence of fracture, dislocation or bony disease. There is no evidence for soft tissue swelling. IMPRESSION: Negative study. The above report was generated using voice recognition software. It may contain grammatical, syntax or spelling errors. Electronically signed by: Jenaro Sepulveda M.D. 06/09/2019 6:09 AM Dictated: 06/09/19608 Transcribed: 06/09/19608 Hospital Course (1) Neck pain on left side: Left side shoulder pain Atypical chest pain Present on admission with left side neck and shoulder pain associated with dizziness and headache Was admitted to [facility] to r/o ACS Seems to be related to muscles stiffness since when palpated the left neck muscle area, her pain reproducible Troponinx 3 negative EKG showed no ischemic changes ECHO showed trace loculated pericardial effusion adjacent to the lateral right ventricle free wall. No wall motion abnormality with Ejection fraction 55% ESR normal CRP mildly elevated Continue statin and carvedilol Baclofen seems to help the neck pain Will consult cardio for loculated pleural effusion on ECHO Case discussed with cardiology and no additional cardiac work up needed Will discharge home today Trace Loculated pleural effusion on echo Possible related to recent bronchitis Cardiology on board No additional cardiac testing Stable Bronchitis CXR showed no evidence of lobar consolidation Will complete outpatient steroid taper Will discharge on guaifenesin for the cough Clinically stable DM type 2 Recent Hba1c 7.9 (06/09/19) She was recently starting on Jardiance Consider to increase Metformin to 1g BID as outpatient if ok to tolerate HTN BP elevated this morning Continue carvedilol and Losartan Will resume HCTZ 12.5 mg Continue monitor BP Hypokalemia K 3.6 today Monitor BMP Stable DVT px on Lovenox CODE STATUS FULL CODE Disposition Follow up with your primary care provider Dr. Levy on 06/13 @ 9:25 am Total Time Total Time Spent Total Time Spent (In Minutes): 35 minutes Total Time Includes: Examination of the Patient, Discharge Planning, Medication Reconciliation, Communication With Other Providers and Other Discharge Plan Discharge Items Patient Disposition: Home - Self-Care Reason For Visit: CP Discharge Diagnosis: Neck pain on left side: Left side shoulder pain Atypical chest pain Loculated pleural effusion Diabetes Type 2 Hypertension Activity: Resume your previous activity Activity Comment: as tolerated Non-emergency contact: Primary Care Provider Call non-emergency contact if: you have any medication questions Follow-up/Referrals: Ana Rosa Berg DO [Primary Care Provider] - Diet: Carb Consistent or DM2 and Heart Healthy Addtl Attending Provider Instructions: Follow up with primary care provider Dr. Levy on 06/13 @ 9:25 AM Monitor your blood sugar Follow up a healthy diabetes diet and limited concentrated sweet intake Check HbA1c in 3 to 6 months Pending Studies at Discharge: No Stand-Alone Forms: My [employer], Smoking Cessation Medications and DC Order Prescriptions: New guaifenesin 200 mg tablet 200 mg PO TID PRN (Reason: congestion) 5 Days Qty: 15 RF: 0 Continued metformin 500 mg Tablet 500 mg PO BID RF: 0 carvedilol 25 mg Tablet 25 mg PO BID RF: 0 prednisone 10 mg Tablet 10 mg PO DAILY RF: 0 atorvastatin 10 mg Tablet 10 mg PO HS RF: 0 cyanocobalamin (vitamin B-12) [Vitamin B-12] 1,000 mcg Tablet 1,000 mcg PO DAILY RF: 0 albuterol sulfate [ProAir HFA] 90 mcg/actuation Hfa Aerosol Inhaler 2 puff INHALATION Q4H PRN (Reason: Shortness Of Breath Or Wheezing) RF: 0 losartan-hydrochlorothiazide 50-12.5 mg Tablet 1 tab PO BID RF: 0 Jardiance 25 mg Tablet 25 mg PO QAM RF: 0 Discharge Orders: Discharge Order (Routine); Ordered 06/10/19 Ordered By: Lidia Lazo/Other Patient Handouts: Diabetes Garbage Truck Helper Complications, Diabetes Resources, Diabetes Type 2 Coping, Diabetes Healthy Meals, Diabetes Carbs, Diabetes Exercise Benefits, Diabetes Activity Tips, Diabetes Living Life, Diabetes Manage A1C Test Admission Data Admit Date/Time: 06/08/19 23:48 Attending Provider: Lidia Simms Admit Provider: Sea Beckham Primary Care Provider: Ana Rosa Berg Other Providers: Sea Beckham ; Julio Joe Other Interventions: Discharge Summary Assessment (RN) Last Done: 06/10/19 16:09 DC Date/Time DO NOT enter until pt leaves facility: 06/10/19 16:30
--- NOTE | 2019-06-13 10:46 | XCELERA ---
[id number] \\[id number]
== END 2019-06-10 16:30 | disposition home or self-care (01) ==
LOC: ED 19:48 → 2S 19:48